=== PATIENT | male | born 1945 | race Caucasian/White ===

== ENCOUNTER 2020-04-16 08:45 | Inpatient (IN) | payer OTHER ==
[~2020-04-16] VITALS: Ht 172.7 cm; Wt 72.6 kg
[2020-04-16] MEDS ORDERED: SIMVASTATIN20 MG PO (13:20)
[2020-04-16] MEDS ORDERED: OMEPRAZOLE MAGN20 MG PO (13:20)
[2020-04-23] MEDS ORDERED: OMEPRAZOLE40 MG (11:42)
== END 2020-04-27 14:19 | disposition home or self-care (01) | DRG 331 ==
LOC: O/R 04-23 06:58 → SURG 04-23 06:58 → O/R 04-23 08:45 → SURG 04-23 18:31
PROVIDERS: ADMIT Surgery; ATTEND Surgery
PROC: 0DBH4ZZ Excision of Cecum, Percutaneous Endoscopic Approach (ICD-10-PCS; principal; 2020-04-23 09:30)
DX: D12.0 Benign neoplasm of cecum (principal); Z20.822 Contact with and (suspected) exposure to COVID-19